=== PATIENT | female | born 1965 | race Caucasian/White ===

== ENCOUNTER → 2017-07-07 | Outpatient (CLI) | payer MEDICAID | LOC: FIMAGING 16:07 | PROVIDERS: ATTEND Obstetrics & Gynecology | DX: Z12.31 Encounter for screening mammogram for malignant neoplasm of breast (principal); Z80.3 Family history of malignant neoplasm of breast ==

== ENCOUNTER → 2017-11-05 | Outpatient (CLI) | payer MEDICAID ==
[~2017-11-05] MED LIST: GADOBUTROL 10 ML VIAL IVP ONE
== END ==
LOC: FIMAGING 12:07
PROVIDERS: ATTEND Nurse Practitioner Women's Health
DX: Z12.39 Encounter for other screening for malignant neoplasm of breast (principal); Z80.3 Family history of malignant neoplasm of breast
CPT/HCPCS: 0159T; 77059; A9585; C8908

== ENCOUNTER → 2018-09-30 | Outpatient (CLI) | payer OTHER | LOC: FIMAGING 15:39 | PROVIDERS: ATTEND Obstetrics & Gynecology | DX: Z12.31 Encounter for screening mammogram for malignant neoplasm of breast (principal); Z80.3 Family history of malignant neoplasm of breast ==